=== PATIENT | female | born 1985 | race Caucasian/White ===

== ENCOUNTER 2017-07-12 13:06 | Outpatient (CLI) | payer OTHER | END 2017-07-12 23:59 | disposition home or self-care (01) | LOC: LAB 13:06 | PROVIDERS: ATTEND Physician Assistant | DX: Z11.1 Encounter for screening for respiratory tuberculosis (principal); R76.11 Nonspecific reaction to tuberculin skin test without active tuberculosis | CPT/HCPCS: 36415 ==

== ENCOUNTER 2017-07-12 13:14 | Outpatient (CLI) | payer OTHER ==
[2017-07-12 14:06] LABS: BASOPHILS % (AUTO) 0.8 % (0-1); EOSINOPHILS # (AUTO) 0.1 X10'3 (0-0.9); EOSINOPHILS % (AUTO) 1.3 % (0-6); HEMATOCRIT 41.2 % (35.0-45.0); HEMOGLOBIN 14.3 g/dl (12.0-16.0); LYMPHOCYTES # (AUTO) 1.7 X10'3 (1.1-4.8); LYMPHOCYTES % (AUTO) 39.8 % (21-51); MEAN CORPUSCULAR HEMOGLOBIN 31.4 PG (27.0-31.0); MEAN CORPUSCULAR HGB CONC 34.8 % (33.0-36.5); MEAN CORPUSCULAR VOLUME 90.1 FL (78-98); MONOCYTES # (AUTO) 0.3 X10'3 (0-0.9); MONOCYTES % (AUTO) 8.2 % (2-12); NEUTROPHILS # (AUTO) 2.1 X10'3 (1.8-7.7); NEUTROPHILS % (AUTO) 49.9 % (42-75); PLATELET COUNT 207 X10'3 (140-440); RED BLOOD COUNT 4.57 X10'6 (4.20-5.60); RED CELL DISTRIBUTION WIDTH 12.9 % (11.5-14.5); WHITE BLOOD COUNT 4.2 X10'3 (4.5-11.0)
[2017-07-12 14:30] LABS: % IRON SATURATION 27 % (11-46); IRON 81 UG/DL (49-151); TOTAL IRON BINDING CAPACITY 303 UG/DL (259-388)
[2017-07-12 14:31] LABS: FERRITIN 30 NG/ML (8-252)
== END 2017-07-12 23:59 | disposition home or self-care (01) ==
LOC: LAB 13:14
PROVIDERS: ATTEND Family Medicine
DX: D64.9 Anemia, unspecified (principal)
CPT/HCPCS: 36415; 82728; 83540; 83550; 85025

== ENCOUNTER 2017-07-21 14:56 | Outpatient (CLI) | payer OTHER | END 2017-07-21 23:59 | disposition home or self-care (01) | LOC: LAB 14:56 → RAD 23:59 | PROVIDERS: ATTEND Family Medicine | DX: R76.12 Nonspecific reaction to cell mediated immunity measurement of gamma interferon antigen response without active tuberculosis (principal) | CPT/HCPCS: 71046 ==

== ENCOUNTER 2017-09-12 13:49 | Outpatient (CLI) | payer OTHER ==
[2017-09-12 14:27] LABS: BASOPHILS % (AUTO) 0.5 % (0-1); EOSINOPHILS # (AUTO) 0.1 X10'3 (0-0.9); EOSINOPHILS % (AUTO) 1.2 % (0-6); HEMATOCRIT 43.2 % (35.0-45.0); HEMOGLOBIN 14.7 g/dl (12.0-16.0); LYMPHOCYTES # (AUTO) 1.5 X10'3 (1.1-4.8); LYMPHOCYTES % (AUTO) 31.8 % (21-51); MEAN CORPUSCULAR HEMOGLOBIN 30.8 PG (27.0-31.0); MEAN CORPUSCULAR HGB CONC 34.1 % (33.0-36.5); MEAN CORPUSCULAR VOLUME 90.4 FL (78-98); MEAN PLATELET VOLUME 8.4 FL (7.4-10.4); MONOCYTES # (AUTO) 0.3 X10'3 (0-0.9); MONOCYTES % (AUTO) 6.1 % (2-12); NEUTROPHILS # (AUTO) 2.8 X10'3 (1.8-7.7); NEUTROPHILS % (AUTO) 60.4 % (42-75); PLATELET COUNT 234 X10'3 (140-440); RED BLOOD COUNT 4.77 X10'6 (4.20-5.60); RED CELL DISTRIBUTION WIDTH 12.4 % (11.5-14.5); WHITE BLOOD COUNT 4.7 X10'3 (4.5-11.0)
[2017-09-12 14:42] LABS: ALANINE AMINOTRANSFERASE 32 U/L (12-78); ALBUMIN 3.8 G/DL (3.4-5.0); ALKALINE PHOSPHATASE 81 IU/L (46-116); ANION GAP 9 (8-16); ASPARTATE AMINO TRANSFERASE 20 U/L (10-37); BILIRUBIN,TOTAL 0.4 MG/DL (0.1-1.0); BLOOD UREA NITROGEN 12 MG/DL (7-18); BUN/CREATININE RATIO 13.6 (6.6-38.0); CALCIUM 8.9 MG/DL (8.5-10.1); CHLORIDE 102 MMOL/L (99-107); CREATININE 0.88 MG/DL (0.40-0.90); GLUCOSE 131 MG/DL (70-104); POTASSIUM 3.6 MMOL/L (3.5-5.1); SODIUM 139 MMOL/L (135-145); TOTAL CARBON DIOXIDE 27.9 MMOL/L (24-32); TOTAL PROTEIN 7.7 G/DL (6.4-8.2); eGFR 74 ML/MIN
[2017-09-12 15:22] LABS: HIV ANTIBODY 1&2 RAPID NON-REACTIVE (Neg)
== END 2017-09-12 23:59 | disposition home or self-care (01) ==
LOC: LAB 13:49
PROVIDERS: ATTEND Internal Medicine
DX: R76.12 Nonspecific reaction to cell mediated immunity measurement of gamma interferon antigen response without active tuberculosis (principal)
CPT/HCPCS: 36415; 80053; 85025; 86703; 86705; 86803

== ENCOUNTER → 2019-06-15 | Outpatient (CLI) | payer OTHER ==
[2019-06-15 10:53] LABS: BASOPHILS % (AUTO) 0.9 % (0-1); EOSINOPHILS # (AUTO) 0.1 X10'3 (0-0.9); EOSINOPHILS % (AUTO) 1.8 % (0-6); HEMATOCRIT 42.2 % (35.0-45.0); HEMOGLOBIN 14.3 g/dl (12.0-16.0); LYMPHOCYTES # (AUTO) 1.4 X10'3 (1.1-4.8); LYMPHOCYTES % (AUTO) 38.5 % (21-51); MEAN CORPUSCULAR HEMOGLOBIN 30.6 PG (27.0-31.0); MEAN CORPUSCULAR HGB CONC 33.8 g/dL (33.0-36.5); MEAN CORPUSCULAR VOLUME 90.3 FL (78-98); MEAN PLATELET VOLUME 8.2 FL (7.4-10.4); MONOCYTES # (AUTO) 0.3 X10'3 (0-0.9); MONOCYTES % (AUTO) 7.9 % (2-12); NEUTROPHILS # (AUTO) 1.9 X10'3 (1.8-7.7); NEUTROPHILS % (AUTO) 50.9 % (42-75); PLATELET COUNT 241 X10'3 (140-440); RED BLOOD COUNT 4.67 X10'6 (4.20-5.60); RED CELL DISTRIBUTION WIDTH 13.1 % (11.5-14.5); WHITE BLOOD COUNT 3.7 X10'3 (4.5-11.0)
[2019-06-15 11:28] LABS: HEMOGLOBIN A1C 4.9 % (4.5-6.2)
[2019-06-15 12:00] LABS: ALANINE AMINOTRANSFERASE 48 U/L (12-78); ALBUMIN 3.7 G/DL (3.4-5.0); ALBUMIN/GLOBULIN RATIO 0.9 (1.1-1.5); ALKALINE PHOSPHATASE 91 IU/L (46-116); ANION GAP 8 (8-16); ASPARTATE AMINO TRANSFERASE 23 U/L (10-37); BILIRUBIN,TOTAL 0.2 MG/DL (0.1-1.0); BLOOD UREA NITROGEN 17 MG/DL (7-18); BUN/CREATININE RATIO 22.4 (6.6-38.0); CALCIUM 8.6 MG/DL (8.5-10.1); CHLORIDE 108 MMOL/L (99-107); CHOL/HDL RATIO 2.7 (0.00-4.99); CHOLESTEROL 192 MG/DL (0-200); CREATININE 0.76 MG/DL (0.40-0.90); GLUCOSE 88 MG/DL (70-104); HDL CHOLESTEROL 70 MG/DL (35-60); LDL CHOLESTEROL 113 MG/DL (50-100); POTASSIUM 4.1 MMOL/L (3.5-5.1); SODIUM 140 MMOL/L (135-145); TOTAL CARBON DIOXIDE 23.6 MMOL/L (24-32); TOTAL PROTEIN 7.6 G/DL (6.4-8.2); TRIGLYCERIDES 44 MG/DL (20-135); eGFR 87 ML/MIN
== END | disposition home or self-care (01) ==
LOC: LAB 10:03
PROVIDERS: ATTEND Family Medicine
DX: E03.9 Hypothyroidism, unspecified (principal); D50.9 Iron deficiency anemia, unspecified; E78.49 Other hyperlipidemia; R73.09 Other abnormal glucose
CPT/HCPCS: 36415; 80053; 80061; 83036; 84443; 85025

== ENCOUNTER 2019-06-18 18:52 | Emergency (ER) | payer OTHER ==
[~2019-06-18] VITALS: Ht 167.6 cm; Wt 90.9 kg
[2019-06-18 20:26] LABS: CLARITY,URINE CLEAR (Clear); COLOR,URINE STRAW (Yellow); GLUCOSE, URINE NEGATIVE (Neg); KETONES,URINE NEGATIVE (Neg); LEUKOCYTE ESTERASE ,URINE TRACE (Neg); NITRITES, URINE NEGATIVE (Neg); OCCULT BLOOD,URINE NEGATIVE (Neg); PH,URINE 5.5 (4.8-8.0); PROTEIN,URINE NEGATIVE (Neg); URINE HCG NEGATIVE (NEG); UROBILINOGEN,URINE 0.2 E.U/dL (0.2-1.0)
[2019-06-18 20:32] LABS: UA COLLECTION TYPE NON-SPECIFIED
[2019-06-18 20:34] LABS: BACTERIA,URINE FEW /HPF (Neg); RBC,URINE 0-2 /HPF (0-2); SQUAMOUS EPITHELIAL CELL,UR FEW /LPF (FEW); WBC,URINE 0-4 /HPF (0-4)
[2019-06-18 21:30] VITALS: BP 121/88
== END 2019-06-18 21:32 | disposition home or self-care (01) ==
LOC: ER 18:53
DX: R00.2 Palpitations (principal); R53.83 Other fatigue; R42 Dizziness and giddiness; R53.1 Weakness; Z72.89 Other problems related to lifestyle; Z00.00 Encounter for general adult medical examination without abnormal findings
CPT/HCPCS: 36415; 81001; 81025; 86140; 87088; 93005; 99284

== ENCOUNTER → 2019-06-29 | Outpatient (CLI) | payer OTHER ==
[2019-06-29 10:32] LABS: FERRITIN 23 NG/ML (8-252)
[2019-06-29 10:54] LABS: % IRON SATURATION 16 % (11-46); IRON 62 UG/DL (49-151); TOTAL IRON BINDING CAPACITY 389 UG/DL (259-388)
[2019-06-30 09:12] LABS: VITAMIN D, 25-HYDROXY 31.5 ng/mL (30.0-100.0)
== END | disposition home or self-care (01) ==
LOC: LAB 09:25
PROVIDERS: ATTEND Family Medicine
DX: D64.9 Anemia, unspecified (principal); E55.9 Vitamin D deficiency, unspecified; R25.9 Unspecified abnormal involuntary movements
CPT/HCPCS: 36415; 70551; 82306; 82607; 82728; 83540; 83550

== ENCOUNTER 2019-10-01 13:47 | Outpatient (CLI) | payer BC, OTHER | END 2019-10-01 23:59 | disposition home or self-care (01) | LOC: LAB 13:47 | PROVIDERS: ATTEND Psychiatry & Neurology Neurology | DX: G93.9 Disorder of brain, unspecified (principal); R25.9 Unspecified abnormal involuntary movements | CPT/HCPCS: 36415 ==

== ENCOUNTER 2019-10-02 11:34 | Outpatient (CLI) | payer BC ==
[2019-10-02] MEDS ORDERED: GADOTERATE MEGLUMINE 7.5 MMOL/15 ML VIAL IV ONE (16:27)
== END 2019-10-02 23:59 | disposition home or self-care (01) ==
LOC: RAD 11:34
DX: D18.09 Hemangioma of other sites (principal); G93.9 Disorder of brain, unspecified; R25.9 Unspecified abnormal involuntary movements
CPT/HCPCS: 70553; 72156; 72157; A9575

== ENCOUNTER 2022-10-10 17:12 | Emergency (ER) | payer BC, OTHER ==
[~2022-10-10] VITALS: Ht 167.6 cm; Wt 86.0 kg
[2022-10-10] MEDS ORDERED: LORazepam 1 MG tablet PO ONE (18:15)
[2022-10-10] MEDS ORDERED: HYDROcodone/acetaminophen 10/325mg tab PO ONE (18:15)
[2022-10-10] MEDS ORDERED: LIDOcaine Viscous 15ml cup TP ONE (18:15)
[2022-10-10] MEDS ORDERED: HYDROmorphone 1 mg/ml syringe IV STA (18:32)
[2022-10-10] MEDS ORDERED: LORazepam 1 MG tablet PO STA (19:00)
[2022-10-10] MEDS ORDERED: ringers solution, lactated 1000ml IV soln IV ONE (19:20)
[2022-10-10 19:25] LABS: BASOPHILS % (AUTO) 0.2 % (0-1); EOSINOPHILS % (AUTO) 0.1 % (0-6); HEMATOCRIT 35.5 % (35.0-45.0); HEMOGLOBIN 11.5 g/dl (12.0-16.0); LYMPHOCYTES # (AUTO) 1.3 X10'3 (1.1-4.8); LYMPHOCYTES % (AUTO) 11.5 % (21-51); MEAN CORPUSCULAR HGB CONC 32.5 g/dL (33.0-36.5); MEAN CORPUSCULAR VOLUME 76.9 FL (78-98); MEAN PLATELET VOLUME 8.5 FL (7.4-10.4); MONOCYTES # (AUTO) 0.6 X10'3 (0-0.9); MONOCYTES % (AUTO) 5.4 % (2-12); NEUTROPHILS % (AUTO) 82.8 % (42-75); PLATELET COUNT 241 X10'3 (140-440); RED BLOOD COUNT 4.61 X10'6 (4.20-5.60); RED CELL DISTRIBUTION WIDTH 17.1 % (11.5-14.5); WHITE BLOOD COUNT 10.9 X10'3 (4.5-11.0)
[2022-10-10 19:35] LABS: ALANINE AMINOTRANSFERASE 21 U/L (12-78); ALBUMIN 3.8 G/DL (3.4-5.0); ALKALINE PHOSPHATASE 75 IU/L (46-116); ANION GAP 13 (8-16); ASPARTATE AMINO TRANSFERASE 17 U/L (10-37); BILIRUBIN,TOTAL 0.1 MG/DL (0.1-1.0); BLOOD UREA NITROGEN 20 MG/DL (7-18); CALCIUM 8.7 MG/DL (8.5-10.1); CHLORIDE 103 MMOL/L (99-107); CREATININE 0.87 MG/DL (0.40-0.90); GLUCOSE 82 MG/DL (70-104); POTASSIUM 3.6 MMOL/L (3.5-5.1); SODIUM 138 MMOL/L (135-145); TOTAL CARBON DIOXIDE 22.3 MMOL/L (24-32); TOTAL PROTEIN 7.8 G/DL (6.4-8.2); eCRCL 82 ML/MIN; eGFR 73 ML/MIN
[2022-10-10] MEDS ORDERED: silver sulfadiazine cream 400gm jar TP SCH (19:55)
[2022-10-10] MEDS ORDERED: bacitracin 15gm ointment TP ONE (20:35)
[2022-10-10] MEDS ORDERED: midazolam 1 mg/ML 2ml injection IV ONE (20:50)
[2022-10-10] MEDS ORDERED: HYDROmorphone 1 mg/ml syringe IV ONE ×2 (20:50→21:25)
--- NOTE | 2022-10-10 20:58 | NUR ---
Mele cummings in ED - 10/10/22 at 2059 by [facility] wound dressed with abx topical and dressing. dressing change educaton given
--- NOTE | 2022-10-10 21:01 | NUR ---
wound dressed with abx topical and dressing. dressing change educaton given
[2022-10-10] MEDS ORDERED: HYDR-3973 PO ×2 (21:09)
[2022-10-10] MEDS ORDERED: CEPH250T PO ×2 (21:09)
[2022-10-10 21:11] VITALS: BP 136/86; PULSE 89; TEMP 98.6; O2SAT 99
[2022-10-10 21:35] VITALS: RESP 18
--- NOTE | 2022-10-10 22:12 | NUR ---
IV DC'D PT BEING DISCHARGED
[2022-10-11] MEDS ORDERED: HYDR-3973 PO (12:36)
[2022-10-11] MEDS ORDERED: CEPH250T PO (12:36)
== END 2022-10-10 22:16 | disposition home or self-care (01) ==
LOC: ER 17:12
DX: T23.251A Burn of second degree of right palm, initial encounter (principal); X08.8XXA Exposure to other specified smoke, fire and flames, initial encounter; Y93.89 Activity, other specified; Y92.89 Other specified places as the place of occurrence of the external cause; Y99.8 Other external cause status
CPT/HCPCS: 16020; 36415; 80053; 84484; 85025; 96361; 96374; 96375; 99284; J1170; J2250; J7030; J7120

== ENCOUNTER 2023-01-23 10:27 | Emergency (ER) | payer BC ==
[~2023-01-23] VITALS: Ht 170.2 cm; Wt 86.4 kg
[~2023-01-23 10:27] MED LIST: CEPH250T PO; HYDR-3973 PO
[2023-01-23] MEDS ORDERED: ketorolac trometh. 30mg/ml inj. IM ONE (12:50)
[2023-01-23] MEDS ORDERED: HYDROcodone/acetaminophen 5mg/325mg tablet PO ONE (12:50)
[2023-01-23 14:20] VITALS: BP 125/91; PULSE 92; RESP 13; TEMP 97.6; O2SAT 98
[2023-01-31] MEDS ORDERED: SODI500S5 PO ×2 (15:52→16:36)
[2023-01-31] MEDS ORDERED: VENL150C58 PO (15:52)
[2023-01-31] MEDS ORDERED: METH-350 PO (16:36)
== END 2023-01-23 14:41 | disposition home or self-care (01) ==
LOC: ER 10:27
DX: S52.592A Other fractures of lower end of left radius, initial encounter for closed fracture (principal); S52.692A Other fracture of lower end of left ulna, initial encounter for closed fracture; M54.50 Low back pain, unspecified; Z72.89 Other problems related to lifestyle; Z79.899 Other long term (current) drug therapy; W10.8XXA Fall (on) (from) other stairs and steps, initial encounter; Y93.89 Activity, other specified; Y92.89 Other specified places as the place of occurrence of the external cause; Y99.8 Other external cause status
CPT/HCPCS: 29125; 72131; 72220; 73110; 96372; 99285; J1885; A4565

== ENCOUNTER 2023-02-01 09:20 | Day surgery (SDC) | payer BC, OTHER ==
[2023-02-01] VITALS (12 sets, daily range): BP systolic 99–119; BP diastolic 60–82; PULSE 83–102; RESP 13–19; TEMP 98.3; O2SAT 91–100
[~2023-02-01] VITALS: Ht 167.6 cm; Wt 90.7 kg
[~2023-02-01 09:20] MED LIST changes: -CEPH250T PO; -HYDR-3973 PO; +METH-350 PO; +SODI500S5 PO; +VENL150C58 PO; +cefazolin 2gm/D5W 100mL 100 ML IV ONE; +famotidine 20mg tablet PO ONE; +ringers solution, lacted 1,000 ML IV SCH
[2023-02-01 10:54] LABS: ALANINE AMINOTRANSFERASE 28 U/L (12-78); ALBUMIN 3.8 G/DL (3.4-5.0); ALBUMIN/GLOBULIN RATIO 0.9 (1.1-1.5); ALKALINE PHOSPHATASE 89 IU/L (46-116); ANION GAP 7 (8-16); ASPARTATE AMINO TRANSFERASE 20 U/L (10-37); BILIRUBIN,TOTAL 0.3 MG/DL (0.1-1.0); BLOOD UREA NITROGEN 15 MG/DL (7-18); BUN/CREATININE RATIO 18.3 (10.0-20.0); CALCIUM 9.1 MG/DL (8.5-10.1); CHLORIDE 102 MMOL/L (99-107); CREATININE 0.82 MG/DL (0.40-0.90); GLUCOSE 84 MG/DL (70-104); POTASSIUM 3.8 MMOL/L (3.5-5.1); SODIUM 135 MMOL/L (135-145); TOTAL CARBON DIOXIDE 26.2 MMOL/L (24-32); TOTAL PROTEIN 8.1 G/DL (6.4-8.2); eCRCL 87 ML/MIN; eGFR 78 ML/MIN
[2023-02-01 10:56] LABS: HCG SERUM QL NEGATIVE
[2023-02-01] MEDS ORDERED: morphine 4 MG/ML inj SYRINge IV PRN (11:05)
[2023-02-01] MEDS ORDERED: ondansetron/PF 4mg/2ml inj IV PRN (11:05)
[2023-02-01] MEDS ORDERED: morphine 2 MG/ML inj. syringe IV PRN (11:05)
[2023-02-01] MEDS ORDERED: hydrALAZINE 20mg/ml inj. IV PRN (11:05)
[2023-02-01] MEDS ORDERED: labetalol 20mg/4ml (5mg/ml) syringe IV PRN (11:05)
[2023-02-01] MEDS ORDERED: ketorolac trometh. 30mg/ml inj. IV ONE (11:05)
[2023-02-01] MEDS ORDERED: fentaNYL/PF 50MCG/1 ML 2ML syringe IV PRN ×2 (11:05)
[2023-02-01] MEDS ORDERED: acetaminophen 1,000mg/100ml IV 100 ML IV ONE (11:05)
[2023-02-01] MEDS ORDERED: proCHLORperazine 10 MG/2 ml inj IV PRN (11:05)
[2023-02-01] MEDS ORDERED: ringers solution, lacted 1,000 ML IV SCH (11:05)
[2023-02-01 11:18] LABS: MEAN PLATELET VOLUME 8.5 FL (7.4-10.4)
[2023-02-01 11:20] LABS: HEMATOCRIT 35.3 % (35.0-45.0); HEMOGLOBIN 11.5 g/dl (12.0-16.0); LYMPHOCYTES # (AUTO) 1.4 X10'3 (1.1-4.8); LYMPHOCYTES % (AUTO) 32.4 % (21-51); MEAN CORPUSCULAR HEMOGLOBIN 25.2 PG (27.0-31.0); MEAN CORPUSCULAR HGB CONC 32.5 g/dL (33.0-36.5); MEAN CORPUSCULAR VOLUME 77.5 FL (78-98); MONOCYTES # (AUTO) 0.4 X10'3 (0-0.9); MONOCYTES % (AUTO) 9.6 % (2-12); NEUTROPHILS # (AUTO) 2.5 X10'3 (1.8-7.7); PLATELET COUNT 268 X10'3 (140-440); RED BLOOD COUNT 4.55 X10'6 (4.20-5.60); RED CELL DISTRIBUTION WIDTH 16.2 % (11.5-14.5); WHITE BLOOD COUNT 4.4 X10'3 (4.5-11.0)
[2023-02-01] MEDS ORDERED: BUPIVAcaine 2.5mg/ml inj 50ml vial (contains preservative) ONE (13:19)
[2023-02-01] MEDS ORDERED: vancomycin 1,000mg inj ONE (13:20)
[2023-02-01] MEDS ORDERED: tobramycin sulfate 1.2gm vial ONE (13:21)
[2023-02-01] MEDS ORDERED: sevoflurane 250ml liquid IH ONE (13:45)
[2023-02-01] MEDS ORDERED: fentaNYL /PF 50mcg/ml 5ml ampule ONE (14:13)
[2023-02-01] MEDS ORDERED: 0.9 % SODIUM CHLORIDE 10 ML VIAL ONE (14:24)
[2023-02-01] MEDS ORDERED: ePHEDrine 50MG/ML INJ. ONE (14:24)
[2023-02-01] MEDS ORDERED: ROPIVAcaine 0.5% (5mg/ml) 30ml vial ONE (14:24)
[2023-02-01] MEDS ORDERED: ondansetron/PF 4mg/2ml inj ONE (14:24)
[2023-02-01] MEDS ORDERED: dexamethasone sod phosphate 4mg/ml inj. ONE (14:24)
[2023-02-01] MEDS ORDERED: LIDOcaine 2% (20mg/ml) 5ml vial ONE (14:24)
[2023-02-01] MEDS ORDERED: propofol inj 20 ML IV ONE (14:24)
[2023-02-01] MEDS ORDERED: ketorolac trometh. 30mg/ml inj. ONE (14:29)
[2023-02-01] MEDS ORDERED: BUPIVAcaine 2.5mg/ml inj 50ml vial (contains preservative) SQ ONE (14:45)
== END 2023-02-01 16:51 | disposition home or self-care (01) ==
LOC: PAS 09:20
PROVIDERS: ATTEND Orthopaedic Surgery Orthopaedic Trauma
DX: S52.552A Other extraarticular fracture of lower end of left radius, initial encounter for closed fracture (principal); J43.9 Emphysema, unspecified; F32.A Depression, unspecified; Z79.899 Other long term (current) drug therapy; Z82.49 Family history of ischemic heart disease and other diseases of the circulatory system; W18.30XA Fall on same level, unspecified, initial encounter; Y93.89 Activity, other specified; Y92.89 Other specified places as the place of occurrence of the external cause; Y99.8 Other external cause status
CPT/HCPCS: 25607; 36415; 73100; 80053; 84703; 85025; A6222; C1713; J0131; J0690; J1100; J1885; J2405; J2704; J2795; J3010; J3260; J3370; J3490; J7030; J7120; Z7506; Z7508; Z7512; 76000; A4565; A4618; A6449; A7000

== ENCOUNTER 2023-03-08 12:47 | Outpatient (CLI) | payer BC, OTHER ==
[~2023-03-08 12:47] MED LIST changes: -cefazolin 2gm/D5W 100mL 100 ML IV ONE; -famotidine 20mg tablet PO ONE; -ringers solution, lacted 1,000 ML IV SCH
== END 2023-03-08 23:59 | disposition home or self-care (01) ==
LOC: RAD 12:47
PROVIDERS: ATTEND Family Medicine
DX: M79.81 Nontraumatic hematoma of soft tissue (principal)
CPT/HCPCS: 76881

== ENCOUNTER 2023-10-18 09:35 | Outpatient (CLI) | payer BC, OTHER ==
[2023-10-18 10:09] LABS: BASOPHILS % (AUTO) 0.6 % (0-1); EOSINOPHILS # (AUTO) 0.1 X10'3 (0-0.9); HEMATOCRIT 37.3 % (35.0-45.0); HEMOGLOBIN 12.3 g/dl (12.0-16.0); LYMPHOCYTES # (AUTO) 1.7 X10'3 (1.1-4.8); LYMPHOCYTES % (AUTO) 30.9 % (21-51); MEAN CORPUSCULAR HEMOGLOBIN 26.4 PG (27.0-31.0); MEAN CORPUSCULAR HGB CONC 32.9 g/dL (33.0-36.5); MEAN CORPUSCULAR VOLUME 80.2 FL (78-98); MEAN PLATELET VOLUME 7.9 FL (7.4-10.4); MONOCYTES # (AUTO) 0.4 X10'3 (0-0.9); NEUTROPHILS # (AUTO) 3.2 X10'3 (1.8-7.7); NEUTROPHILS % (AUTO) 59.5 % (42-75); PLATELET COUNT 315 X10'3 (140-440); RED BLOOD COUNT 4.65 X10'6 (4.20-5.60); RED CELL DISTRIBUTION WIDTH 16.1 % (11.5-14.5); WHITE BLOOD COUNT 5.5 X10'3 (4.5-11.0)
[2023-10-18 10:22] LABS: ALANINE AMINOTRANSFERASE 31 U/L (12-78); ALBUMIN 3.6 G/DL (3.4-5.0); ALBUMIN/GLOBULIN RATIO 0.8 (1.1-1.5); ALKALINE PHOSPHATASE 98 IU/L (46-116); ANION GAP 10 (8-16); ASPARTATE AMINO TRANSFERASE 21 U/L (10-37); BILIRUBIN,TOTAL 0.2 MG/DL (0.1-1.0); BLOOD UREA NITROGEN 19 MG/DL (7-18); BUN/CREATININE RATIO 25.3 (10.0-20.0); CALCIUM 8.6 MG/DL (8.5-10.1); CHLORIDE 104 MMOL/L (99-107); CHOL/HDL RATIO 3.4 (0.00-4.99); CHOLESTEROL 225 MG/DL (0-200); CREATININE 0.75 MG/DL (0.40-0.90); FREE T4 (FREE THYROXINE) 0.72 NG/DL (0.73-1.40); GLUCOSE 90 MG/DL (70-104); HDL CHOLESTEROL 66 MG/DL (35-60); LDL CHOLESTEROL 130 MG/DL (50-100); POTASSIUM 4.2 MMOL/L (3.5-5.1); SODIUM 140 MMOL/L (135-145); THYROID STIMULATING HORMONE 1.36 ulU/ml (0.34-4.50); TOTAL CARBON DIOXIDE 25.7 MMOL/L (24-32); TOTAL PROTEIN 7.9 G/DL (6.4-8.2); TRIGLYCERIDES 67 MG/DL (20-135); eGFR 86 ML/MIN
[2023-10-20 05:24] LABS: VITAMIN D, 25-HYDROXY 23.6 ng/mL (30.0-100.0)
== END 2023-10-18 23:59 | disposition home or self-care (01) ==
LOC: RAD 09:35
PROVIDERS: ATTEND Family Medicine
DX: Z00.00 Encounter for general adult medical examination without abnormal findings (principal); D64.9 Anemia, unspecified; E11.9 Type 2 diabetes mellitus without complications; R06.00 Dyspnea, unspecified; E55.9 Vitamin D deficiency, unspecified; E03.9 Hypothyroidism, unspecified; E78.00 Pure hypercholesterolemia, unspecified
CPT/HCPCS: 36415; 80053; 80061; 82306; 83036; 84439; 84443; 84480; 85025